=== PATIENT | male | born 1990 | race Caucasian/White ===

== ENCOUNTER 2019-02-05 16:17 | Inpatient (IN) | payer MEDICAID ==
[~2019-02-05] VITALS: Ht 180.3 cm; Wt 112.5 kg
--- NOTE | 2019-02-05 18:00 | NUR ---
arrived to er with c/o abcess to marcos area started srated friday and has grown tender to touch and warm vitals stable with no temp lungs clear dr in room orders given for us and antibitoic awating blood cultures first then antibitioic started.
[2019-02-05 18:32] LABS: PLATELET COUNT 320 x10^3mcL (130-400); RED CELL DISTRIBUTION WIDTH 13.2 % (11.5-14.5)
--- NOTE | 2019-02-05 18:40 | NUR ---
pt down to xray at this time.
[2019-02-05 18:42] LABS: CARBON DIOXIDE 28.9 mmol/L (21-32); CHLORIDE SERUM 99 mmol/L (98-107); GFR1 > 60 mL/min; GLUCOSE SERUM 107 mg/dL (74-106); POTASSIUM SERUM 3.5 mmol/L (3.5-5.1); SODIUM SERUM 136 mmol/L (136-145)
[2019-02-05 18:46] LABS: ALKALINE PHOSPHATASE 104 U/L (46-116); ALT/SGPT 27 U/L (16-63); AST/SGOT 20 U/L (15-37); BILIRUBIN TOTAL 0.68 mg/dL (0.20-1.00); TOTAL PROTEIN, SERUM 7.8 g/dL (6.4-8.2)
[2019-02-05 19:06] LABS: BAND NEUTROPHIL 4 % (0-10); MONOCYTE 13 % (0-7); SEGMENTED NEUTROPHILS 75 % (37-75)
[2019-02-05 19:08] LABS: PLATELET MORPHOLOGY PLATELETS NORMAL; rbc morphology (normal/abnorm) NORMAL (NORMAL)
[2019-02-05 19:22] LABS: C REACTIVE PROTEIN 35.8 mg/dL (<=0.9)
--- NOTE | 2019-02-05 19:48 | NUR ---
AT BEDSIDE TO DISCUSS PLAN OF CARE FOR I&D WITH PT. PT REPORTED THAT S/P MORPHINE ADMINISTRATION, SHE BEGAN FEELING HIVES. HIVES AROUND HER NECK AREA, LEFT EYE, AND ABDOMEN NOTED. MD MADE AWARE. PT REQUESTED FOR MORPHINE TO BE ADDED TO HER ALLERGY LIST.
--- NOTE | 2019-02-05 19:51 | NUR ---
PT SIGNED CONSENT FOR PROCEDURE: I&D OF ABSCESS WITH MODERATE SEDATION. PT VERBALIZED UNDERSTANDING OF PROCEDURE. ALL QUESTIONS AND CONCERNS ANSWERED AT THIS TIME. PT'S MOTHER AT BEDSIDE ALSO VERBALIZED UNDERSTANDING.
--- NOTE | 2019-02-05 20:12 | NUR ---
DR OAKLEY AND RT VERENICE AT AT BEDSIDE. TIME OUT PERFORMED BY DR OAKLEY. DR OAKLEY ADMINISTERING 50 MG OF KETAMINE IVP.
--- NOTE | 2019-02-05 20:12 | NUR ---
PLEASE SEE MODERATE SEDATION RECORD.
--- NOTE | 2019-02-05 20:29 | NUR ---
DR OAKLEY REMINDED ABOUT BENADRYL FOR PT. REPORTED THAT HE SPOKE WITH PT REGARDING NEED FOR BENADRYL, AND THAT THEY AGREED THAT ADMINISTRATION WAS NOT NEEDED AT THIS TIME.
--- NOTE | 2019-02-05 20:35 | NUR ---
PT WAKING UP, OPENING EYES SPONTANEOUSLY. PT ASKED FOR ME TO GET HER MOTHER AND FRIEND FROM QUIET ROOM. PT IS AWAKE AND ALERT, AAOX4, RESP E/U, NAD NOTED.
[2019-02-05 20:55] LABS: MAGNESIUM 2.1 mg/dL (1.8-2.4); PHOSPHOROUS 2.6 mg/dL (2.5-4.9)
[2019-02-05 21:02] LABS: T3 TOTAL 0.9 ng/mL
--- NOTE | 2019-02-05 21:02 | NUR ---
CHECKED ON PT, PT REPORTS HER HIVES ARE RETURNING. FRANCES ALMENDAREZ MADE AWARE.
[2019-02-05 21:06] LABS: FREE T4 1.39 ng/dL (0.76-1.46); FREE THYROXINE INDEX 3.1 ug/dL (1.4-4.5); T4(THYROXINE) 8.5 ug/dL (4.7-13.3)
--- NOTE | 2019-02-05 21:17 | NUR ---
REPORT GIVEN TO ZIA DANIELS.
--- NOTE | 2019-02-05 23:30 | NUR ---
RECEIVED PT FROM ED VIA [facility], ACCOMPANED BY NURSE AND 2 FRIENDS. PT ABLE TO AMBULATE WITH STRONG AND STEADY GAIT FROM GUERNEY TO CHAIR WITHOUT INCIDENT. S/P I&D TO R INGUINAL/ABD ABSCESS EARLIER TODAY IN ER. WOULD WITH PACKING, PRESSURE DRESSING IN PLACE, CDI. PT C/O 5/10 PAIN TO INCISION AREA, WILL MEDICATE PRN. AA/OX4, ABLE TO MAKE NEEDS KNOWN, SPEECH CLEAR AND APPROPRIATE. MED-SURG, NO TELE, DENIES CP. PULSES PALPABLE AND EQUAL THROUGHOUT, NO EDEMA. BREATHING ON RA, EVEN AND UNLABORED, NO SOB OR DYSPNEA OBSERVED, LUNGS CTA, 98% ABD ROUND AND SOFT WITH ACTIVE BOWEL SOUNDS, DENIES N/V/D. VOIDS YRINE FREELY. IV TO LAC IN PLACE, DRY, PATENT, INTACT, CONNECTED TO IVF ORDERED, INFUSING WELL WITHOUT S&S PHLEBITIS OR INFILTRATION NOTED. ORIENTED PT TO ROOM AND CALL LIGHT. ALL NEEDS ASSESSED AND ATTENDED TO. CALL LIGHT WITHIN REACH. WILL CONTINUE TO MONITOR
[2019-02-05 23:31] VITALS: BP 124/64
[2019-02-06 00:05] LABS: microscopic required? YES; urine erythrocyte NEGATIVE (NEGATIVE)
[2019-02-06 00:45] LABS: AMPHETAMINE QUAL UR NONE DETECTED (See below)
--- NOTE | 2019-02-06 05:44 | NUR ---
NO SIGNIFICANT CHANGES TO REPORT, PT COMPLIED WITH NURSING CARE THROUGHOUT THE SHIFT WITH NO ACUTE EVENTS OVERNIGHT. NO ACUTE DISTRESS OBSERVED AT THIS TIME, PT LAYING IN BED, BREATHING EVEN AND UNLABORED, AROUSABLE TO VERBAL STIMULI. COMFORT AND SAFETY MEASURES MAINTAINED. ALL NEEDS ASSESSED AND ATTENDED TO. CALL LIGHT WITHIN REACH. WILL CONTINUE TO MONITOR AND ENDORSE CARE TO DAY SHIFT NURSE
--- NOTE | 2019-02-06 06:13 | NUR ---
NO SIGNIFICANT CHANGES TO REPORT, PT COMPLIED WITH NURSING CARE THROUGHOUT THE SHIFT WITH NO ACUTE EVENTS OVERNIGHT. NO ACUTE DISTRESS OBSERVED AT THIS TIME, PT LAYING IN BED, BREATHING EVEN AND UNLABORED ON ROOM AIR, O2 SAT 96% AROUSABLE TO VERBAL STIMULI. COMFORT AND SAFETY MEASURES MAINTAINED. ALL NEEDS ASSESSED AND ATTENDED TO. CALL LIGHT WITHIN REACH. WILL CONTINUE TO MONITOR AND ENDORSE CARE TO DAY SHIFT NURSE
[2019-02-06 06:14] VITALS: BP 103/61
[2019-02-06 06:25] LABS: PLATELET COUNT 290 x10^3mcL (130-400); RED CELL DISTRIBUTION WIDTH 13.6 % (11.5-14.5)
--- NOTE | 2019-02-06 07:25 | NUR ---
RECEIVED PT. IN BED A/A/O X3. NO SOB, NO N/V NOTED. PT. DENIES ANY PAIN AT THIS TIME. NS RUNNING AT 100 CC/HR VIA IV SITE AT L FA. BED IN LOW POS., CALL LIGHT WITHIN REACH. SIDE RAILS UP X3.
[2019-02-06 08:05] LABS: CALCIUM 7.5 mg/dL (8.5-10.1); CARBON DIOXIDE 25.8 mmol/L (21-32); CHLORIDE SERUM 104 mmol/L (98-107); CREATININE SERUM 0.9 mg/dL (0.7-1.3); GFR1 > 60 mL/min; GLUCOSE SERUM 99 mg/dL (74-106); PHOSPHOROUS 3.2 mg/dL (2.5-4.9); POTASSIUM SERUM 3.7 mmol/L (3.5-5.1); SODIUM SERUM 138 mmol/L (136-145)
[2019-02-06 08:43] LABS: BAND NEUTROPHIL 3 % (0-10); BASOPHIL 0 % (0-2)
[2019-02-06 08:44] LABS: MONOCYTE 10 % (0-7); SEGMENTED NEUTROPHILS 79 % (37-75)
[2019-02-06 09:15] VITALS: BP 115/57
[2019-02-06 16:52] VITALS: BP 125/62
--- NOTE | 2019-02-06 18:13 | NUR ---
REMAINS IN STABLE CONDITION AT THIS TIME. WILL CONTINUE TO MONITOR.
--- NOTE | 2019-02-06 18:30 | NUR ---
REMAINS IN STABLE CONDITION AT THIS TIME. WILL CONTINUE TO MONITOR.
--- NOTE | 2019-02-06 19:25 | NUR ---
RECEIVED PT IN BED AWAKE, ALERT,ORIENTED X4. NO SOB ON ROOM AIR. W/ DRESSING TO RT GROIN CDI. PT HAS NO C/O PAIN AT THIS TIME. W/ IVF NS AT 100 CC/HR VIA LTFA. CALL LIGHT W/IN REACH.
[2019-02-06 20:48] VITALS: BP 123/76
--- NOTE | 2019-02-07 01:24 | NUR ---
PT AWAKE AND RESTING COMFORTABLY IN BED. DENIED DISCOMFORT AT THIS TIME.
--- NOTE | 2019-02-07 04:53 | NUR ---
PT SLEPT AT LONG INTERVALS. HE HAD NO C/O PAIN. DRESSING TO RT GROIN CDI. IVF NS INFUSING WELL AT 100 CC/HR VIA LTFA.
[2019-02-07 05:28] VITALS: BP 103/75
--- NOTE | 2019-02-07 05:54 | NUR ---
PT C/O RT GROIN PAIN 10/19. NORCO 7.5/325 MG PO GIVEN.
[2019-02-07 06:48] LABS: BASOPHIL % 0.8 % (0-2); PLATELET COUNT 352 x10^3mcL (130-400); RED CELL DISTRIBUTION WIDTH 13.8 % (11.5-14.5)
[2019-02-07 06:57] LABS: CALCIUM 7.9 mg/dL (8.5-10.1); CARBON DIOXIDE 26.3 mmol/L (21-32); CHLORIDE SERUM 105 mmol/L (98-107); CREATININE SERUM 0.8 mg/dL (0.7-1.3); GFR1 > 60 mL/min; GLUCOSE SERUM 94 mg/dL (74-106); MAGNESIUM 2.1 mg/dL (1.8-2.4); PHOSPHOROUS 3.2 mg/dL (2.5-4.9); POTASSIUM SERUM 3.4 mmol/L (3.5-5.1); SODIUM SERUM 140 mmol/L (136-145)
--- NOTE | 2019-02-07 07:30 | NUR ---
RECEIVED PT FROM SINK MAKER. ASSESSED AND DOCUMENTED. DENIES PAIN THIS TIME. SAFTEY PRECAUTIONS ARE IN PLACE. WILL MONITOR.
[2019-02-07 08:30] VITALS: BP 126/65
--- NOTE | 2019-02-07 09:00 | NUR ---
CAME AND SAW THE PT. HE SAID CHANGE DRESSING AND PACKING TODAY. PT IS STABLE.
--- NOTE | 2019-02-07 12:58 | NUR ---
PT SAID HE IS FEELING PAIN AT RT GROIN WOUND,09/18. ADMINISTERED NORCO PO ORDERED AND WILL REASSESS AND WILL DO DRESSING CHANGE. PT IS STABLE.
--- NOTE | 2019-02-07 13:58 | NUR ---
PT SAID HE DOESNOT FEEL ANY PAIN ANYMORE AT THE RT GROIN WOUND SITE. DRESSING CHANGE DONE AND PACKING CHANGED PER 'S INSTRUCTION. ONE OF PT'S FRIEND WANT TO STAY AND WATCH, ASKED PT PERMISSION BUT PT SAID HE DOESNOT WANT ANYBODY STAY WITH HIM AND WATCH DRESSING CHANGE, HE SAID HE WILL WATCH AND DO DRESSING CHANGE HIMSELF AT HOME IF NEED TO AND HE ASK EVERYBODY TO STEP OUT. PT COOPERATED WELL. DURING DRESSING CHANGE HE WAS FEELING SOME PAIN BUT AFTER DRESSING CHANGE DONE HE SAID PAIN IS GONE. GAVE COMFORTABLE POSITION. PT'S PARENTS CAME INSIDE THE ROOM. PT LOOKS PLEASANT AND HAPPY. WOUND RE EVALUATION DOCUMENTED.
[2019-02-07 16:56] VITALS: BP 140/78
--- NOTE | 2019-02-07 17:50 | NUR ---
INFORMED WARP SCOURING VAT TENDER NAVARRO ABOUT WOUND CULTURE RESULT MRSA POSITIVE. PT IS ON CLEOCIN IVPB AND SHE SAID TO CONTINUE SAME ANTIBIOTIC. PUT PT ON CONTACT ISOLATION AND INFORMED PT. CHARGE NURSE AWARE.
--- NOTE | 2019-02-07 19:25 | NUR ---
RECEIVED PT IN BED AWAKE, ALERT,ORIENTED X4. NO SOB ON ROOM AIR. NO C/O ABDL DISCOMFORT. RT GROIN WOUND W/ DRESSING W/ MOD AMOUNT OF DRAINAGE NOTED. PT HAS NO C/O PAIN AT THIS TIME. W/ IVF NS AT 100 CC/HR VIA LTFA. CALL LIGHT W/IN REACH.
--- NOTE | 2019-02-07 19:25 | NUR ---
PT RESTING IN BED COMFORTABLY. DENIES ANY PAIN. STABLE. GAVE REPORT TO CHRONOGRAPH OPERATOR NURSE.
[2019-02-07 20:44] VITALS: BP 117/67
--- NOTE | 2019-02-07 22:43 | NUR ---
PT C/O PAIN RT SIDE OF SUPRAPUBIC AREA 11/18. NORCO 7.5/325 MG PO GIVEN.
--- NOTE | 2019-02-08 05:14 | NUR ---
PT SLEPT THROUGH THE NIGHT. SHE WAS MEDICATED FOR PAIN X1/ DRESSING TO RT SUPRAPUBIC AREA CHANGED X1 WHEN PHOTO WAS TAKEN . MOD AMOUNT OF SS DRAINAGE NOTED. DRESSING CLEAN, DRY AND INTACT AT THIS TIME. IVF NS INFUSING WELL AT 100 CC/HR VIA LTFA.
[2019-02-08 05:15] VITALS: BP 136/82
--- NOTE | 2019-02-08 06:01 | NUR ---
PT C/O PAIN ON HIS RT SUPRAPUBIC AREA ( ABSCESS) 11/18. NORCO 7.5/325 MG PO GIVEN.
[2019-02-08 06:37] LABS: BASOPHIL % 0.6 % (0-2); PLATELET COUNT 366 x10^3mcL (130-400); RED CELL DISTRIBUTION WIDTH 13.4 % (11.5-14.5)
[2019-02-08 07:21] LABS: CALCIUM 8.3 mg/dL (8.5-10.1); CHLORIDE SERUM 107 mmol/L (98-107); CREATININE SERUM 0.9 mg/dL (0.7-1.3); GFR1 > 60 mL/min; GLUCOSE SERUM 85 mg/dL (74-106); POTASSIUM SERUM 4.3 mmol/L (3.5-5.1); SODIUM SERUM 141 mmol/L (136-145)
--- NOTE | 2019-02-08 07:48 | NUR ---
A+OX4, NO RESPRIATORY DISTRESS NOTED, MEDSURG, STATES PAIN IS TOLERABLE A THIS TIME, PULSES MODERATE AND EQUAL ALICIA, NO EDEMA NOTED, LUNG SOUND CTA, TOLERATING RA, BOWEL SOUNDS ACTIVE, VOIDING FREELY, GENERALIZED WEAKNESS, ERYTHEMA TO R SIDE OF ABD AND SUPRAPUBIC AREA, R INGUINAL ABD WALL INCISION WITH PACKING AND DRESSING, CDI, IV IN LFA WITH NS @ 100 ML/HR, SITE WNL.
[2019-02-08 08:34] VITALS: BP 116/68
--- NOTE | 2019-02-08 09:37 | NUR ---
PT AMBULATED TO BATHROOM AND BACK TO BED INDEPENDENTLY, NO RESPRIATORY DISTRESS NOTED, COMPLAINING OF PAIN AT R INGUINAL INCISION SITE, NORCO PO GIVEN, ASSISTED PT TO CALL MOTHER, CALL LIGHT WITHIN REACH.
--- NOTE | 2019-02-08 11:54 | NUR ---
PT RESTING IN BED, NO RESPIRATORY DISTRESS NOTED, STATES PAIN IS TOLERABLE AT THIS TIME, CALL LIGHT WITHIN REACH.
--- NOTE | 2019-02-08 13:24 | NUR ---
PT RESTING IN BED, NO RESPIRATORY DISTRESS NOTED, COMPLAINING OF 8/10 PAIN AT INCISION SITE, NORCO PO GIVEN, CALL LIGHT WITHIN.
--- NOTE | 2019-02-08 15:14 | NUR ---
Discount pharmacy card and list to low cost medical clinics given to patient by Kate.
--- NOTE | 2019-02-08 15:58 | NUR ---
PT RESTING IN BED, NO RESPIRATORY DISTRESS NOTED, STATES PAIN IS TOLERABLE AT THIS TIME, CALL LIGHT WITHIN REACH.
--- NOTE | 2019-02-08 16:59 | NUR ---
PT RESTING IN BED, NO RESPIRATORY DISTRESS NOTED, STATES PAIN TOLERABLE AT THIS TIME, CALL LIGHT WITHIN REACH.
[2019-02-08 17:15] VITALS: BP 126/69
--- NOTE | 2019-02-08 18:18 | NUR ---
PT COMPLAINING OF PAIN AT INCISION SITE, NORCO PO GIVEN, NO RESPIRATORY DISTRESS NOTED, CALL LIGHT WITHIN REACH.
--- NOTE | 2019-02-08 19:43 | NUR ---
ENDORSED CARE TO CHETAN DANIELS.
--- NOTE | 2019-02-08 20:00 | NUR ---
PATIENT RECEIVED IN BED AWAKE,ALERT AND ORIENTEDX4, SPEECH CLEAR, PATIENT OFFERED NO COMPLAINTS THIS TIME. IV SITE NO SIGN OF INFILTRATION. DRESSING TO RT GROIN CDI, TAPE SECURED, PATIENT COMPLAINED OF BEARABLE PAIN, RATED AT 3/10 INFORMED ABOUT PAIN MANAGEMENT. CONTACT ISOLATION FOR MRSA/WMD OBSERVED AND MAINTRAINED. PATIENT INFORMED ABOUT POC THIS SHIFT. SAFETY PREC. MAINTAINED. WILL CONTINUE TO MONITOR.
[2019-02-08 20:15] VITALS: BP 132/83
--- NOTE | 2019-02-08 21:19 | NUR ---
PATIENT REFUSED COLACE SCHED PATINT STATED HAD SEMI FORMED 2X STOOL TODAY.
--- NOTE | 2019-02-08 22:08 | NUR ---
COMPLAINED OF RT INGUINAL WOUND SITE PAIN RATED AT 7/10 MEDICATED PRN.
--- NOTE | 2019-02-08 23:08 | NUR ---
CHECKED EFFECTIVENESS OF PAIN MEDS GIVEN EARLIER, PATIENT CLAIMED PAIN IS SLOWLY SUBSIDING RATED AT 2/10, COMFORTABLE. WILL CONTINUE TO MONITOR.
--- NOTE | 2019-02-09 02:35 | NUR ---
PATIENT HAD CALLED AND COMPLAINED OF PAIN TO RT INGUINAL WOUND AREA, RATED AT 5/10, MEDICATED PRN. WILL CHECK EFFECTIVENESS.
--- NOTE | 2019-02-09 03:31 | NUR ---
CHECKED EFFECTIVENESS OF PAIN MEDS PATIENT RESTING QUIETLY THIS TIME,AWAKEN EASILY, RATED PAIN AT 2/10.
[2019-02-09 05:46] VITALS: BP 141/84
--- NOTE | 2019-02-09 06:23 | NUR ---
PATIENT SLEPT WELL AND RESTED GOOD DURING THE SHIFT, WAS MEDICATED PRN FOR COMPLAINT OF RT INGUINAL WOUND PAIN,RECEIVED RELIEF. IV SITE NO SIGN OF INFILTRATION. AMBULATORY WITH STEADY GAIT. WILL ENDORSE CONTINUITY OF CARE TO INCOMING NURSE.
[2019-02-09 06:39] LABS: BASOPHIL % 0.6 % (0-2); RED CELL DISTRIBUTION WIDTH 13.6 % (11.5-14.5)
[2019-02-09 06:50] LABS: PLATELET COUNT 431 x10^3mcL (130-400)
[2019-02-09 06:58] LABS: CALCIUM 8.4 mg/dL (8.5-10.1); CARBON DIOXIDE 29.9 mmol/L (21-32); CHLORIDE SERUM 106 mmol/L (98-107); CREATININE SERUM 0.9 mg/dL (0.7-1.3); GFR1 > 60 mL/min; GLUCOSE SERUM 85 mg/dL (74-106); POTASSIUM SERUM 4.7 mmol/L (3.5-5.1); SODIUM SERUM 141 mmol/L (136-145)
--- NOTE | 2019-02-09 07:27 | NUR ---
BEDSIDE REPORT AND INTRODUCTION PERFORMED WITH INCOMING NURSE NAVEEN.
--- NOTE | 2019-02-09 07:35 | NUR ---
RECEIVED PT FROM SAND CAR WORKER. PT AWAKE, ALERT. A/OX4. PT ON ROOM AIR WITH NO RESP DISTRESS NOTED. IV ACCESS LFA CDI INFUSING NS AT 100ML/HR. PERIPHERAL PULSES PALPABLE, NO EDEMA NOTED. ACTIVE BS NOTED. NO APPARENT ISSUES WITH ELIMINATION AT THIS TIME. PT AMBULATORY WITH MILD GENERAIZED WEAKNESS. PT S/P I & D WITH WOUND TO RIGHT INGUINAL AREA. BANDAGE NOTED TO HAVE SOME DRAINAGE AT THIS TIME. WILL CHANGE DRESSING. PT TO HAVE WOUND CARE CONSULT TODAY. PT REPORTS PAIN TOLERABLE AT THIS TIME. SAFETY MEASURES IN PLACE, BED LOW AND LOCKED. CALL LIGHT WITHIN REACH.
[2019-02-09 07:47] VITALS: BP 140/85
[2019-02-09] MEDS ORDERED: CLINDAMYCIN HC150 MG PO (09:45)
--- NOTE | 2019-02-09 12:42 | NUR ---
PT COMPLAINING OF PAIN TO INCISION. NORCO ADMINISTERED ORDERED PRN. (SEE EMAR). PAIN 11/18 AT THIS TIME. WILL MONITOR.
[2019-02-09 13:01] VITALS: BP 140/85
--- NOTE | 2019-02-09 13:32 | NUR ---
PT REPORTS SOME RELIEF AFTER ADMINISTRATION OF NORCO. WILL CONTINUE TO MONITOR.
--- NOTE | 2019-02-09 14:30 | NUR ---
WOUND CARE NURSE AT BEDSIDE WITH PATIENT. PT NOTED TO HAVE HARD AREAS AROUND INCISION. PT WOUND 0.5CM LENGTH, 3CM WIDTH, AND 1.5CM DEPTH. PHOTO DOCUMENTATION TAKEN AND PLACED IN CHART.
--- NOTE | 2019-02-09 14:45 | NUR ---
WOUND CARE EVALUATION TO S/P I&D RIGHT GROINS. WITH WOUND CARE TEACHING TO PT AND PARENTS AND VERBALIZES UNDERSTANDING.POC DISCUSSED WITH PRIMARY RN. -SURGICAL WOUND RIGHT GROIN 0.5X3X1.5CM, WOUND BED IS 100% GRANULATING TISSUE, SMALL AMOUNT OF SEROSANGENOUS DRAINAGE, NO ORDOR, CHRISTOPHER WOUND SKIN INTACT WITH INDURATION EXTENDED TO SUPRAPUBIC AREA, PAIN O/10 WHEN AREA IS TOUCHED. REVIEW OF CT RESULT NO FLUIDS COLLECTION/ABSCESS. RECOMMENDATIONS: -CLEANSE WOUND WITH WOUND CARE SOLUTION, PAT DRY,PACK WOUND WITN ADAPTIC DRESSING, COVER WITH ISLAND DRESSING. DRESSING CHANGE EVERY FRIDAY, FRIDAY AND FRIDAY AND PRN IF SOILED. -KEEP IAM DRY AND CLEAN AT ALL TIMES.
--- NOTE | 2019-02-09 15:00 | NUR ---
CATRACHITA Wallace NP AWARE OF WOUND AREA. NEW ORDERS GIVEN. PT TO NOT BE DISCHARGED TODAY. NEW CONSULT WITH DR ORTEGA.
[2019-02-09 16:27] VITALS: BP 120/69
--- NOTE | 2019-02-09 18:56 | NUR ---
PT STABLE AT THIS TIME. WILL CONTINUE TO MONITOR AND ENDORSE CARE TO TANK HOUSE OPERATOR.
[2019-02-09 19:55] VITALS: BP 129/86
--- NOTE | 2019-02-09 20:00 | NUR ---
PATIENT RECEIVED VIA BEDSIDE HANDSS OFF FROM OUT GOING NURSE NAVEEN, PATIENT SEEMS COMFORTABLE, COMPLAINED OF RT INGUINAL AREA WND PAIN RATED AT 5/10 , WILL CHECK PRN MEDS IF ITS DUE. PATIENT INFORMED ABOUT POC THIS SHIFT. SAFETY PRECAUTIONS MAINTAINED. CONTACT ISOLATION FOR MRSA ABSSCESS WND CX,OBSERVED AND MAINTAINED. PATIENT INFORMED ABOUT POC THIS SHIFT. WILL CONTINUE TO MONITOR.
--- NOTE | 2019-02-09 20:43 | NUR ---
PATIENT COMPLAINED OF RT INGUINAL AREA WND PAIN, RATED AT 7-8/10 THROBBING, MEDICATED PRN. MADE COMFORTABLE IN BED. WILL CHECK EFFECTIVENESS.
--- NOTE | 2019-02-09 22:43 | NUR ---
PTS PAIN DID NOT DECREASE FROM NORCO. STATES PAIN IS 7/10 NOW. MEDICATED PT WITH TORADOL PRN PER JUL ORDER. WILL REASSESS AND CONTINUE TO MONITOR.
--- NOTE | 2019-02-10 | NUR ---
PT IS LYING IN BED ASLEEP BUT IS EASILY AROUSABLE WHEN SPOKEN TO. FAMILY MEMBER AT BEDSIDE. BREATHING IS EVEN AND UNLABORED. NO SIGNS OF RESP. DISTRESS. CALL LIGHT WITHIN REACH. BED IN LOWEST POSITION. WILL CONTINUE TO MONITOR.
--- NOTE | 2019-02-10 03:45 | NUR ---
PT IS ASLEEP BUT EASILY AROUSABLE WHEN SPOKEN TO. BREATHING IS EVEN AND UNLABORED. NO SIGNS OF RESP. DISTRESS. CALL LIGHT WITHIN REACH. BED IN LOWEST POSITION. WILL CONTINUE TO MONITOR.
[2019-02-10 05:54] VITALS: BP 127/80
--- NOTE | 2019-02-10 07:15 | NUR ---
RECEIVED BEDSIDE REPORT FROM MANAGER LIFE SCIENCES NURSE AT THIS TIME. PATIENT RESTING COMFORTABLY IN BED. NO APPARENT DISTRESS OR DISCOMFORT NOTED. BREATHING EVEN AND UNLABORED. NO RESPIRATORY DISTRESS NOTED. PATIENT DENIES CHEST PAIN/PRESSURE AT THIS TIME. RIGHT INGUINAL AREA INCISION S/P I&D IN ED, DRESSING IN PLACE. IV PATENT AND INTACT. ALL QUESTIONS AND CONCERNS ADDRESSED. ALL NEEDS ATTENDED TO. WILL CONTINUE TO MONITOR
--- NOTE | 2019-02-10 07:26 | NUR ---
PT SLEPT IN INTERVALS THROUGHOUT SHIFT WITH NO ACUTE EVENTS OVERNIGHT. COMFORT AND SAFETY MEASURES MAINTAINED. ALL NEEDS ASSESSED AND ATTENDED TO. ENDORSED CARE TO DAY SHIFT NURSE, MARCELINO DANIELS.
--- NOTE | 2019-02-10 09:00 | NUR ---
DR HOPE AT BEDSIDE ASSESSING PATIENT RIGHT INGUINAL AREA INCISION. PER DR HOPE NO NEED TO REPACK WOUND, JUST REDRESS SITE. POSSIBLE SURGERY PLANNED FOR TOMORROW 02/11/19. ALL QUESTIONS AND CONCERNS ADDRESSED. PATIENT VERBALIZES UNDERSTANDING. ALL NEEDS ATTENDED TO. WILL CONTINUE TO MONITOR
[2019-02-10 09:45] VITALS: BP 118/67
--- NOTE | 2019-02-10 10:00 | NUR ---
PATIENT OFFERED COLACE. PATIENT DENIES NEED FOR STOOL SOFTNER AT THIS TIME. ALL NEEDS ATTENDED TO. WILL CONTINUE TO MONITOR
--- NOTE | 2019-02-10 11:26 | NUR ---
1. Recommend continuing regular diet. 2. Recommend Vitamin C 500 mg/day for wound healing Discussed recommendations with ZIA Mcintosh.
--- NOTE | 2019-02-10 11:26 | NUR ---
Initial Nutrition Assessment: 204/B JAC KOTHARI HR Dx: Abscess w/ cellulitis PMHx: Non- significant PSHx: None Labs: CA 8.4L, HGB 12.9L Meds: Colace, norco, NS, zofran Diet: Regular PO intake since admission: (02/10) NPO, (02/08) dinner 100%, lunch, breakfast 50%, (02/07) dinner 80%, lunch, breakfast 75% Ht: 180.34 cm (71") Wt: 112.5 kg (247#) BMI: 34.6 kg/m2 Bed scale: 112.5 kg IBW: 172# (78 kg) %IBW: 143 UBW: 245-247# Age: 28/M Food Allergies: NKFA Skin: R inguinal area incision with dressing. Hard skin surrounding wound. Moderate drainage noted. Allen: 21 Edema: none GI: Last BM: 02/09 Pt is a 26 YO trans-gender female patient who came to the ER from home for suprapubic pain and swelling. RD Note (02/10): Patient was alert and oriented and said that he had PBJ and yogurt for breakfast this morning. FNS received consult for 'wound care' on 02/08. Patient will have possible I&D for Suprapubic abscess with MRSA. Problem with: N/V/D/C: none at this time Problems with: Chewing: Swallowing: none Current appetite: fair Recent wt change: none %wt change: n/a Vitamin/Supplement use: hair, skin and nail vitamins Special diet at home: Regular Physical activity: walking Nutrition education given: none provided at this time. Patient did not have any diet/nutrition related questions. Food-drug interactions: Colace: high fiber w/ 9217-2821 ml fluid/day Education given: n/a Estimated Nutritional Needs Based on adjusted body weight (87 kg) Energy: 2507-2138 kcal/day (25-30 kcal/kg for maintenance) Protein: 87- 104 g/day (1.0-1.2 g/kg for wound healing) Fluid: 7052-6397 mL/day (1 mL/kcal) Nutrition Diagnosis: 1. Increased nutrient needs related to wound as evidenced by estimated protein needs. Intervention 1. Recommend continuing regular diet. 2. Recommend Vitamin C 500 mg/day for wound healing Monitor/Evaluate Goal: PO intake at least 75% of estimated needs Monitor: PO intake, Labs, GI function F/U in 7 days as low risk 02/17
--- NOTE | 2019-02-10 13:11 | NUR ---
PATIENT C/O 5/10 PAIN IN INCISION SITE AT THIS TIME. PATIENT MEDICATED WITH NORCO PO PRN. PATIENT TOLERATED MEDICATION WELL. NO APPARENT ADVERSE EFFECTS NOTED. ALL NEEDS ATTENDED TO. WILL CONTINUE TO MONITOR
[2019-02-10 17:38] VITALS: BP 126/73
--- NOTE | 2019-02-10 17:45 | NUR ---
PATIENT SITTING UP IN BED EATING DINNER AT THIS TIME. PATIENT TOLERATING DIET WELL. NO APPARENT DISTRESS OR DISCOMFORT NOTED. ALL NEEDS ATTENDED TO. WILL CONTINUE TO MONITOR
--- NOTE | 2019-02-10 18:28 | NUR ---
PATIENT RESTING COMFORTABLY IN BED AT THIS TIME. NO APPARENT DISTRESS OR DISCOMFORT NOTED. IV PATENT AND INTACT INFUSING NS @100ML/HR. ALL QUESTIONS AND CONCERNS ADDRESSED. ALL NEEDS ATTENDED TO. SAFETY PRECAUTION MAINTAINED. WILL ENDORSE ALL CARE TO LEGAL JOB TITLES NURSE
--- NOTE | 2019-02-10 19:30 | NUR ---
Pt. received from day shift nurse resting in bed, no signs of distress, sob, or pain. Pt. complained of suprapubic pain s/p shaving and admitted w/ d(x) of abscess w/ cellulitis. Pt. is on contact iso d/t (+) MRSA on wound but (-) on nares. Pt. is in the process of transitioning from male to female and prefers "she" pronoun. Pt. noted to be NPO post midnight for debridement on tomorrow, 02/11/2019. Pt. is a/o x4, med surg, (+) pulses and (-) for edema, lung sounds CTA and on room air w/ CXR (-). Pt. noted to have (+) bowel sounds and last BM noted in the am of 02/10/2019. Pt. voids, ambulatory, UA (x_ w/ UDS (+) for THC and opiates. Pt. has R inguinal incision w/ dressing and hard skin surrounding incision area. Pt. has drainage noted, serosanguinous drainage noted. Pt. on NS @ 100 cc/hr on LFA, IV site patent. Pt. call light placed within reach, bed set at lowest position, and will continue to monitor.
--- NOTE | 2019-02-10 20:30 | NUR ---
Pt. dressing on R inguinal area changed, cleansed with NS, and gauze placed optifoam in place. Pt. tolerated procedure well, no complaints of pain or discomfort, will continue to monitor.
[2019-02-10 20:54] VITALS: BP 133/84
--- NOTE | 2019-02-11 02:15 | NUR ---
Pt. currently resting in bed, asleep. No signs of distress, SOB, or unlabored breathing. Call light placed within, needs anticipated and met, bed set at lowest position, will continue to monitor.
[2019-02-11 05:34] VITALS: BP 131/83
--- NOTE | 2019-02-11 06:06 | NUR ---
Pt. requested to assess wound dressing the drainage. Serosanguenous drainage noted with moderate amount and with a peach tinge color to the drainage also. Pt. complains of no pain or changes to the hardness around the incision cite. Palpation of the skin around the incision sites feels hard as it was when the dressing was changed last night. Pt. tolerated procedure without any signs of SOB, pain, or discomfort. Will continue to monitor.
[2019-02-11 06:13] LABS: BASOPHIL % 0.7 % (0-2); RED CELL DISTRIBUTION WIDTH 13.6 % (11.5-14.5)
--- NOTE | 2019-02-11 06:13 | NUR ---
Pt. currently resting in bed, s/p dressing change. IV bag changed and IV tubing changed. No signs of SOB, distress, or discomfort. Needs have been anticipated and met throughout the night. Pt. call light placed within reach, bed set at lowest position, will continue to monitor.
[2019-02-11 06:15] LABS: CALCIUM 8.9 mg/dL (8.5-10.1); CARBON DIOXIDE 29.3 mmol/L (21-32); CHLORIDE SERUM 106 mmol/L (98-107); GFR1 > 60 mL/min; GLUCOSE SERUM 85 mg/dL (74-106); POTASSIUM SERUM 4.7 mmol/L (3.5-5.1); SODIUM SERUM 140 mmol/L (136-145)
--- NOTE | 2019-02-11 06:47 | NUR ---
RECEIVED CALL FROM OR, GAVE REPORT TO JOSE. ALL QUESTIONS AND CONCERNS ADDRESSED. PT WILL BE NAHOMI WIPED, DISCONNECTED FROM IV. PT CALM AND COOPERATIVE WITH PLAN OF CARE AT THIS TIME.
--- NOTE | 2019-02-11 06:57 | NUR ---
Pt. transported down to OR at 6:50 via gurney, report given by FRANCES Sanders to OR. Will endorse to next shift.
--- NOTE | 2019-02-11 07:20 | NUR ---
MAKING ROUND- PT. NOT IN ROOM AT THIS TIME. PT. IN O.R. FOR PROCEDURE.
--- NOTE | 2019-02-11 07:28 | NUR ---
ENDORSED ALL CARE TO DAYSHIFT NURSE, NO ACUTE DISTRESS NOTED. ALL QUESTIONS AND CONCERNS ADDRESSED, ALL COMFORT AND SAFETY MEASURES PROVIDED FOR, CALL LIGHT WTIHIN REACH, BED IN LOWEST POSITION.
[2019-02-11 08:07] LABS: PLATELET COUNT 516 x10^3mcL (130-400)
--- NOTE | 2019-02-11 09:12 | NUR ---
RECEIVED PT. FROM [facility]. ; PT. IS S/P EXCISIONAL DEBRIDEMENT OF R INGUINAL ABSCESS TODAY. POST-OP DRESSING TO R GROIN CDI. PT. IS A/A/O X3. NO SOB, NO N/V NOTED. PT. DENIES ANY PAIN AT THIS TIME. IVF NS RESUMED AT 50 CC/HR VIA IV SITE AT L FA. PT. IS ON CONTACT ISOLATION FOR MRSA WOUND. BED IN LOW POS., CALL LIGHT WITHIN REACH. SIDE RAILS UP X3.
[2019-02-11 15:53] VITALS: BP 124/70
--- NOTE | 2019-02-11 19:04 | NUR ---
REMAINS IN STABLE CONDITION AT THIS TIME. WILL CONTINUE TO MONITOR.
--- NOTE | 2019-02-11 19:05 | NUR ---
REPORT RECEIVED FROM DAY SHIFT RN. PATIENT WAS SEEN RESTING COMFORTABLY IN BED. NO DISTRESS NOTED. BREATHING EVEN AND UNLABORED ON ROOM AIR. NO SOB NOTED. DENIES CHEST PAIN/PRESSURE. NO C/O PAIN AT THIS TIME. IV TO THE LFA INFUSING WELL. PATENT AND INTACT. NO REDNESS OR SWELLING NOTED. RIGHT INGUINAL AREA DRESSING NOTED, CDI, S/P I&D. NO DRAINAGE NOTED. COMFORT AND SAFETY MEASURES IN PLACE. CALL LIGHT IS WITHIN REACH. BED IS LOCKED AND IN THE LOWEST POSITION. SIDE RAILS UP X2. CALL LIGHT IS WITHIN REACH. WILL CONTINUE TO MONITOR.
--- NOTE | 2019-02-11 20:23 | NUR ---
C/O 6/10 RIGHT INGUINAL PAIN. PRN NORCO ADMINISTERED PRESCRIBED. MED EDUCATION GIVEN. NO DISTRESS NOTED. BREATHING EVEN AND UNLABORED. SAFETY MEASURSE IN PLACE. PROVIDED PATIENT WITH NEW SHEET AND BLANKET. CALL LIGHT IS WITHIN REACH. WILL CONTINUE TO MONITOR.
[2019-02-11 22:08] VITALS: BP 125/75
--- NOTE | 2019-02-12 01:39 | NUR ---
RESTING IN BED WITH EYES CLOSED. NO DISTRESS NOTED. BREATHING EVEN AND UNLABORED ON ROOM AIR. NO SOB OR RESP DISTRESS NOTED. IVF INFUSING WELL. SAFETY MEASURES IN PLACE. CALL LIGHT IS WITHIN REACH. WILL CONTINUE TO MONITOR.
--- NOTE | 2019-02-12 05:53 | NUR ---
RESTED IN LONG INTERVALS THROUGHOUT THE NIGHT. NO ACUTE CHANGES NOTED. BREATHING EVEN AND UNLABORED ON ROOM AIR. NO SOB NOTED. NO DISTRESS NOTED. IVF INFUSING WELL TO LFA. PATENT AND INTACT. NO REDNESS OR SWELLING NOTED. C/O PAIN X1. MEDICATED W/ PRN NORCO W/ GOOD RELIEF. DENIES CHEST PAIN/PRESSURE. RIGHT INGUINAL DRESSING IN PLACE. ALL NEEDS AND CONCERNS ADDRESSED. SAFETY MEASURES IN PLACE. CALL LIGHT IS WITHIN REACH. WILL ENDORSE CARE TO ONCOMING RN.
[2019-02-12 06:06] VITALS: BP 117/70
[2019-02-12 06:33] LABS: BASOPHIL % 0.3 % (0-2); RED CELL DISTRIBUTION WIDTH 13.8 % (11.5-14.5)
[2019-02-12 06:47] LABS: CARBON DIOXIDE 30.4 mmol/L (21-32); CHLORIDE SERUM 107 mmol/L (98-107); GFR1 > 60 mL/min; GLUCOSE SERUM 98 mg/dL (74-106); POTASSIUM SERUM 4.2 mmol/L (3.5-5.1); SODIUM SERUM 142 mmol/L (136-145)
[2019-02-12 06:48] LABS: PLATELET COUNT 499 x10^3mcL (130-400)
--- NOTE | 2019-02-12 07:10 | NUR ---
RECEIVED PT FROM PIE BAKER RN. Franky/BREANNA. MED SURG. DENIES ANY CHEST PAIN/PRESSURE. RESPIRATIONS EQUAL AND UNLABORED ON RA. DENIES SOB. PT DENIES ANY N/V. PT STATES PAIN TO OPERATIVE SITE IS SHARP 4/10 BUT TOLERABLE AT THIS TIME. IV TO LFA PATENT AND INFUSING. NO REDNESS OR SWELLING NOTED. DRESSING TO RIGHT INGUINAL AREA, CDI. WILL CONTINUE TO MONITOR. CALL LIGHT IN REACH. BED IN LOWEST POSITION.
[2019-02-12 08:35] VITALS: BP 113/83
--- NOTE | 2019-02-12 09:35 | NUR ---
PT SITTING UP IN BED. NO ACUTE RESP DISTRESS NOTED ON RA. PT C/O PAIN 10/19 TO OPERATIVE SITE SHARP. MEDICATED PER EMAR. INCISION TO RIGHT INGUINCAL AREA, DRESSING CDI. NO DRAINAGE NOTED. IV PATENT AND INFUSING TO LFA. NO REDNESS OR SWELLING NOTED. WILL CONTINUE TO MONITOR. CALL LIGHT IN REACH. BED IN LOWEST POSITION.
[2019-02-12] MEDS ORDERED: NORCO1 TA2 PO (09:54)
[2019-02-12 11:27] VITALS: BP 113/83
--- NOTE | 2019-02-12 13:18 | NUR ---
PT SITTING UP IN BED. NO ACUTE RESP DISTRESS NOTED ON RA. PT ASKING ABOUT DISCHARGE, PT INSTRUCTED WE ARE AWAITING FOR WOUND CARE NURSE TO PROVIDE EDUCATION TO ON HOW TO CARE FOR WOUND AT HOME. ONCE MARK RN SEES PT WILL BE ABLE TO DISCHARGE. IV TO LFA FLUSHED WELL. NO REDNESS OR SWELLING NOTED. IV ANTIBIOTICS INFUSING ORDERED. PT DENIES ANY PAIN AT THIS TIME. WILL CONTINUE TO MONITOR. CALL LIGHT IN REACH. BED IN LOWEST POSITION.
--- NOTE | 2019-02-12 15:00 | NUR ---
MARK CLEANING TECHNICIAN AT BEDSIDE. PT DRESSING CHANGED TO RIGHT INGUINAL ABCESS. MARK EDUCATED PT ON IMPORTANCE OF CHANGING DRESSING QDAY AND EDUCATED PT ON HOW TO CHANGE DRESSING. WOUND PHOTO TAKEN. PT GIVEN GAUZE, IODOFORM, ABDPAD, NS FLUSHED AND TAPE TO DO DRESSING CHANGES AT HOME ONE WEEK. PT ENCOURAGED TO FOLLOW UP WITH DR. MELENDEZ WITHIN 1 WEEK OF DISCHARGE. PT VERBALIZED UNDERSTANDING. PT ENCOURAGED TO MONITOR FOR ANY WORSENING DRAINAGE, FOUL ODOR, OF SEVERE PAIN. PT VERBALIZED UNDERSTANDING. PT GIVEN PRESCRIPTIONS FOR CLINDAMYCIN AND NORCO. PT EDUCATED ON WHEN NEXT DOSE OF NORCO IS AVAILABLE. ALL QUESTIONS AND CONCERNS ADDRESSED. IV TO LFA REMOVED CATHETER INTACT. NO REDNESS OR SWELLING NOTED. NO PROBLEMS ENCOUNTERED. PT TAKEN OFF FLOOR BY KIM.
--- NOTE | 2019-02-12 15:30 | NUR ---
WOUND CARE NURSE MARK RN AT BEDSIDE. MARK EDUCATING PT ON HOW TO CARE FOR WOUND. PT
--- NOTE | 2019-02-12 15:44 | NUR ---
PT SITTING UP IN BED. NO ACUTE RESPD
--- NOTE | 2019-02-12 16:00 | NUR ---
WOUND CARE RE-EVALUATION FOR S/P I&D TO RIGHT GROIN AREA WITH DR. MELENDEZ 02/11/19. WOUND CARE TEACHING GIVEN TO PT. PT. VERBALIZES UNDERSTANDING, PT. NOTIFIED OF FOLLO UP APPOINTMENT WITH SURGEON. -SURGICAL WOUND RIGHT GROIN EXTENDED TO SUPRAPUBIC AREA 2X13X3 CM,WOUND BED IS 100% GRANULATING TISSUE, SMALL AMOUNT OF SEROSANGENOUS DRAINAGE, NO ORDOR, CHRISTOPHER WOUND SKIN INTACT WITH PAIN O/10 WHEN AREA IS TOUCHED. RECOMMENDATIONS: -CLEANSE WOUND WITH NORMAL SOLUTION, PAT DRY,PACK WOUND WITH IODOFORM DRESSING COVER WITH ABD PAD SECURE WITH TAPE. DRESSING CHANGE EVERY DAY AND PRN IF SOILING. -KEEP IAM DRY AND CLEAN AT ALL TIMES. -FOLLOW UP APPOINTMENT SCHEDULED. -MAY DISCHARGE WITH WOUND CARE SUPPLIES
[2019-02-15 11:36] VITALS: Ht 180.3 cm; Wt 112.5 kg
== END 2019-02-12 16:20 | disposition home or self-care (01) | DRG 720 ==
LOC: ED 16:17 → MU 19:54
PROVIDERS: Emergency Medicine; Internal Medicine; Surgery; ADMIT General Practice
PROC: 0J9C3ZZ Drainage of Pelvic Region Subcutaneous Tissue and Fascia, Percutaneous Approach (ICD-10-PCS; 2019-02-05)
PROC: 0Y953ZZ Drainage of Right Inguinal Region, Percutaneous Approach (ICD-10-PCS; principal; 2019-02-11 07:30)
DX: A41.9 Sepsis, unspecified organism (principal); E44.0 Moderate protein-calorie malnutrition; E83.51 Hypocalcemia; L02.214 Cutaneous abscess of groin; E87.6 Hypokalemia; Z68.34 Body mass index [BMI] 34.0-34.9, adult; Z87.891 Personal history of nicotine dependence; B95.62 Methicillin resistant Staphylococcus aureus infection as the cause of diseases classified elsewhere
CPT/HCPCS: 84439; 90715; G0378; J0690; J1200; J1885; J2001; J2175; J2250; J2270; J2405; J2704; J3010; J3370; J3490; J7030; J7040; J7050; J7120; Q0092; Q9967